=== PATIENT | female | born 1995 | race Two or more races ===

== ENCOUNTER 2021-11-14 21:19 | Emergency (ER) | payer OTHER ==
[~2021-11-14] VITALS: Ht 157.5 cm; Wt 59.0 kg
[2021-11-14 22:42] VITALS: BP 120/72
--- NOTE | 2021-11-14 23:04 | NUR ---
PT IS MEDICALLY CLEARED FOR BOOKING AND RELEASED UNDER THE CARE [facility]. PT IS IN STABLE CONDITION. AMBULATORY ON STEADY GAIT
== END 2021-11-14 23:16 | disposition home or self-care (01) ==
LOC: ER 21:30
DX: Z02.89 Encounter for other administrative examinations (principal)